=== PATIENT | female | born 1960 | race Caucasian/White ===

== ENCOUNTER → 2016-11-21 | Outpatient (CLI) | payer OTHER ==
[2016-11-21 11:10] LABS: HEMOGLOBIN 14.9 gm/dl (12.3-15.3); RED BLOOD COUNT 4.79 M/UL (4.00-5.10); WHITE BLOOD COUNT 7.1 K/UL (4.5-11.0)
[2016-11-21 11:30] LABS: BUN/CREATININE RATIO 14 (0-10)
== END ==
LOC: MAMO 11-16 11:40 → EXRD 11-20 13:30 → LAB 09:42 → MAMO 11:20
PROVIDERS: Nurse Practitioner Family
DX: Z13.820 Encounter for screening for osteoporosis (principal); Z12.4 Encounter for screening for malignant neoplasm of cervix; Z13.220 Encounter for screening for lipoid disorders; Z12.31 Encounter for screening mammogram for malignant neoplasm of breast; G43.019 Migraine without aura, intractable, without status migrainosus; M79.1 Myalgia; N91.2 Amenorrhea, unspecified; D68.9 Coagulation defect, unspecified; M81.0 Age-related osteoporosis without current pathological fracture
CPT/HCPCS: 36415; 77080; 80053; 80061; 81241; 82670; 82679; 83001; 83002; 83735; 84144; 84402; 84403; 84443; 85025; 85300; 85301; 85303; 85610; 85730; G0202

== ENCOUNTER → 2020-07-17 | Outpatient (CLI) | payer OTHER ==
[~2020-07-17] MED LIST: NORCO 10-325 T1 EACH PO; NORCO 5-325 TA1 EACH PO; PERCOCET 5-3251 EACH PO; VOLTAREN GEL 1 % TOP
[2020-07-17 11:16] LABS: HEMOGLOBIN 15.3 gm/dl (12.3-15.3); RED BLOOD COUNT 4.93 M/UL (4.00-5.10); WHITE BLOOD COUNT 8.1 K/UL (4.5-11.0)
[2020-07-17 11:40] LABS: BUN/CREATININE RATIO 16 (0-10)
[2020-07-18 10:09] LABS: PROGESTERONE 0.3 ng/mL (.)
[2020-07-22 15:11] LABS: ESTRONE, SERUM 74 pg/mL (.)
[2020-07-26 11:10] LABS: % FREE TESTOSTERONE (DIALYSIS) 0.3 % (.)
[2020-07-27 10:14] LABS: ESTRADIOL <5.0 pg/mL (.); THYROID PEROXIDASE (TPO) AB <9 IU/mL (0-34); VITAMIN D, 25-HYDROXY 14.4 ng/mL (30.0-100.0)
== END ==
LOC: LAB 09:41
PROVIDERS: Nurse Practitioner Family
DX: G43.019 Migraine without aura, intractable, without status migrainosus (principal); R53.82 Chronic fatigue, unspecified; M81.8 Other osteoporosis without current pathological fracture; R94.5 Abnormal results of liver function studies; G47.00 Insomnia, unspecified; N95.9 Unspecified menopausal and perimenopausal disorder
CPT/HCPCS: 80053; 82607; 82670; 82679; 82728; 83001; 83002; 83540; 83550; 84144; 84402; 84403; 84443; 85025; 86376

== ENCOUNTER 2021-05-22 14:55 | Emergency (ER) | payer BC, OTHER ==
[2021-05-22] MEDS ORDERED: MOBIC15 MG PO (16:15)
== END 2021-05-22 16:24 | disposition home or self-care (01) ==
LOC: ER1 14:55
DX: S93.401A Sprain of unspecified ligament of right ankle, initial encounter (principal); F17.200 Nicotine dependence, unspecified, uncomplicated; W01.0XXA Fall on same level from slipping, tripping and stumbling without subsequent striking against object, initial encounter; Y92.009 Unspecified place in unspecified non-institutional (private) residence as the place of occurrence of the external cause
CPT/HCPCS: 73610; 99283